=== PATIENT | male | born 1940 | race Caucasian/White ===

== ENCOUNTER 2017-05-11 12:58 | Outpatient (CLI) | payer MEDICARE, OTHER | END 2017-05-11 12:59 | disposition home or self-care (01) | LOC: BICULT 12:58 | PROVIDERS: ATTEND Internal Medicine Nephrology | DX: I12.9 Hypertensive chronic kidney disease with stage 1 through stage 4 chronic kidney disease, or unspecified chronic kidney disease (principal); E11.22 Type 2 diabetes mellitus with diabetic chronic kidney disease; N18.9 Chronic kidney disease, unspecified; I73.9 Peripheral vascular disease, unspecified; R80.9 Proteinuria, unspecified; C61 Malignant neoplasm of prostate; E78.5 Hyperlipidemia, unspecified; I25.10 Atherosclerotic heart disease of native coronary artery without angina pectoris; J44.9 Chronic obstructive pulmonary disease, unspecified; K57.30 Diverticulosis of large intestine without perforation or abscess without bleeding; K21.9 Gastro-esophageal reflux disease without esophagitis; M19.90 Unspecified osteoarthritis, unspecified site; R76.11 Nonspecific reaction to tuberculin skin test without active tuberculosis | CPT/HCPCS: 76770 ==

== ENCOUNTER 2017-08-03 12:46 | Outpatient (CLI) | payer MEDICARE, OTHER | END 2017-08-03 12:47 | disposition home or self-care (01) | LOC: BICULT 12:46 | PROVIDERS: ATTEND Internal Medicine Nephrology | DX: E11.51 Type 2 diabetes mellitus with diabetic peripheral angiopathy without gangrene (principal); E11.22 Type 2 diabetes mellitus with diabetic chronic kidney disease; I13.10 Hypertensive heart and chronic kidney disease without heart failure, with stage 1 through stage 4 chronic kidney disease, or unspecified chronic kidney disease; C61 Malignant neoplasm of prostate; N18.9 Chronic kidney disease, unspecified; E78.5 Hyperlipidemia, unspecified; J44.9 Chronic obstructive pulmonary disease, unspecified; K57.90 Diverticulosis of intestine, part unspecified, without perforation or abscess without bleeding; K21.9 Gastro-esophageal reflux disease without esophagitis; M19.90 Unspecified osteoarthritis, unspecified site | CPT/HCPCS: 93880 ==

== ENCOUNTER 2018-03-29 07:48 | Outpatient (CLI) | payer MEDICARE, OTHER ==
--- NOTE | 2018-03-29 10:17 | MRI ---
CERVICAL SPINE MRI WITHOUT CONTRAST: Comparison: 04-05-15 History: Cervicalgia. Technique: Cervical spine MRI is performed without intravenous gadolinium administration. Multisequen tial, multiplanar imaging performed. FINDINGS: There is appropriate T1 marrow signal intensity of the cervical vertebrae. Cervical spine vertebral b edwin height is maintained. There is no fracture. 1.4 mm of anterolisthesis of C6 upon C7, unchanged. V isualized brain parenchyma, cervical cord and the upper thoracic cord have a normal size and signal i ntensity. No significant STIR hyperintensity to suggest vertebral body edema or ligamentous injury. C2-3: Central disc bulge abuts the thecal sac. No significant central canal stenosis. Hypertrophic ch anges in the bilateral uncal vertebral joints results in mild to moderate right and mild left foramin al narrowing. C3-4: There is a broad based disc osteophyte complex without central disc bulge that abuts and deform s the ventral thecal sac and midline cervical cord. No T2 hyperintensity in the cord. Mild to moderat e central canal stenosis. Hypertrophic changes and bilateral uncal vertebral joints and severe right facet hypertrophy are noted. There is severe right and left foraminal narrowing. C4-5: There is a broad based disc osteophyte complex that abuts the thecal sac. There is a right para central component. Ventral subarachnoid space is effaced. There is flattening and deformity of the ve ntral thecal sac and ventral cord. No T2 hyperintensity in the cord. Moderate central canal stenosis. Hypertrophic change in bilateral uncal vertebral joints as well as left facet hypertrophy. Severe bi lateral neural foraminal narrowing. C5-6: Broad based disc osteophyte complex abuts the thecal sac. There is severe central canal stenosi s. Severe bilateral foraminal narrowing due to hypertrophic changes of the uncal vertebral joints and to lesser extent facet hypertrophy. C6-7: Broad based disc osteophyte complex abuts the thecal sac. At least mild central canal stenosis. Moderate to severe bilateral foraminal narrowing due to hypertrophic changes of the uncal vertebral joint. C7-T1: No high grade central canal stenosis. There is mild bilateral foraminal narrowing. There is le ft greater than right facet hypertrophy. IMPRESSION: Degenerative changes of the cervical spine as above. POS: [facility]
--- NOTE | 2018-03-29 11:07 | MRI ---
MRI OF LUMBAR SPINE: HISTORY: Low back pain, M54.5. FINDINGS: Multiplanar, multisequence noncontrast-enhanced MRI images lumbar spine obtained. Comparison is made to previous exam from 04/07/2015. MRI images demonstrate for the purposes of this dictation 5 [id number] lumbar vertebrae. 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 T12-L1: Unremarkable. L1-2: Unremarkable. L2-3: There is a mild broad-based disk bulge compressing the thecal sac and the lateral recesses. T here is bilateral facet hypertrophy seen. This has not significantly changed since the previous exam . Moderate bilateral neural foraminal narrowing is seen due to facet hypertrophy as well as the broa d-based disk bulge at the L2-3 level. L3-4: There is some disk desiccation seen. There is a broad-based disk bulge with bilateral facet a nd ligamentum flavum hypertrophy. This results in minimal central and lateral recess stenosis and mo derate bilateral neural foraminal narrowing. L4-5: There is grade I anterolisthesis of L4 on L5 unchanged since the previous exam. There is yg re facet hypertrophy as well as a broad-based central disk protrusion. There is moderate left L4-5 l ateral recess stenosis seen. The right neural foramen demonstrates mild narrowing while the left sev ere stenosis. The central canal and right L4-5 lateral recess are patent. L5-S1: Vacuum disk changes seen at this level. There is a broad-based disk bulge. Bilateral facet hypertrophy is seen. This results in mild to moderate right and moderate left-sided neural foraminal narrowing. IMPRESSION: Decreased central stenosis and lateral recess stenosis at L4-5. POS: [facility]
== END 2018-03-29 07:49 | disposition home or self-care (01) ==
LOC: TBSIIMAG 07:48
PROVIDERS: ATTEND Neurological Surgery
DX: M47.22 Other spondylosis with radiculopathy, cervical region (principal); M54.5 Low back pain; M48.061 Spinal stenosis, lumbar region without neurogenic claudication
CPT/HCPCS: 36415; 72141; 72148; 80053; 80061; 83036

== ENCOUNTER 2018-07-26 14:02 | Outpatient (CLI) | payer MEDICARE, OTHER ==
[2018-07-26 17:52] LABS: #Eosinphils 0.2 thou/uL (0.0-0.7); #Lymphocytes 2.9 thou/uL (1.20-3.40); #Monocytes 0.9 thou/uL (0.11-0.59); #Neutrophils 5.3 thou/uL (1.40-6.50); %Basophils 0.5 % (0.0-1.0); %Eosinophils 2.7 % (0.0-10.0); %Lymphocytes 31.1 % (21.0-51.0); %Monocytes 9.1 % (0.0-10.0); %Neutrophils 56.6 % (42.0-75.0); Hemoglobin 15.2 g/dL (14.0-18.0); Mean Corpuscular HGB CONC 33.7 g/dL (32.0-36.0); Mean Corpuscular Hemoglobin 34.1 pg (27.0-31.0); Mean Platelet Volume 8.4 fL (7.4-10.4); Platelet Count 280 thou/uL (130-400); RBC Distribution Width 11.7 % (11.5-14.5); Red Blood Cell (RBC) Count 4.47 mill/uL (4.70-6.10); White Blood Cell (WBC) Count 9.4 thou/uL (4.8-10.8)
[2018-07-26 18:15] LABS: Anion Gap 12 mmol/L (10-20); BUN (Urea Nitrogen) 20 mg/dL (8.4-25.7); Calc. Creatinine Clearance 0 mL/min (70-130); Calcium 9.2 mg/dL (7.8-10.44); Carbon Dioxide 27 mmol/L (23-31); Chloride 98 mmol/L (98-107); Estimated GFR-MDRD 44; Glucose 273 mg/dL (83-110); Potassium 4.2 mmol/L (3.5-5.1); Sodium 133 mmol/L (136-145)
== END 2018-07-26 14:03 | disposition home or self-care (01) ==
LOC: LABBT 14:02
PROVIDERS: ATTEND Orthopaedic Surgery
DX: Z01.818 Encounter for other preprocedural examination (principal); M12.811 Other specific arthropathies, not elsewhere classified, right shoulder
CPT/HCPCS: 80048; 85025; 87081; 93005; 93010

== ENCOUNTER 2018-07-26 15:30 | Inpatient (IN) | payer MEDICARE, OTHER ==
[2018-08-07] MEDS ORDERED: Midazolam HCl 2 mg/2 ml Vial ONE ×3 (06:36→08:03)
[2018-08-07] MEDS ORDERED: Fentanyl 100 MCG/2 ML VIAL ONE ×5 (06:36→12:44)
[2018-08-07] MEDS ORDERED: HYDROcodone/Acetaminophen 10/325 mg Tablet PO PRN ×2 (07:03)
[2018-08-07] MEDS ORDERED: traZODone HCl 150 MG TAB PO PRN (07:05)
[2018-08-07] MEDS ORDERED: diphenhydrAMINE 50 MG CAP PO PRN (07:05)
[2018-08-07] MEDS ORDERED: Sodium Chloride 0.9% 100 ML ONE (07:09)
[2018-08-07] MEDS ORDERED: Tranexamic Acid 1,000 MG/10 ML VIAL ONE ×2 (07:09→11:13)
[2018-08-07] MEDS ORDERED: Gentamicin 80 MG/2 ML VIAL ONE (07:15)
[2018-08-07] MEDS ORDERED: Vancomycin HCl 1.5 GM in Sodium Chloride 0.9% 250 ML 300 ML IVPB SCH (07:15)
[2018-08-07] MEDS ORDERED: Vancomycin HCl 1 GM in Premix Bag 1 BAG IVPB SCH (07:15)
[2018-08-07] MEDS ORDERED: Gentamicin Sulfate 100 MG in Premix Bag 1 BAG IVPB SCH (07:30)
[2018-08-07] MEDS ORDERED: Tranexamic Acid 1,000 MG in Sodium Chloride 0.9% 100 ML IVPB SCH (07:30)
[2018-08-07] MEDS ORDERED: Glimepiride 4 MG TAB PO SCH (08:00)
[2018-08-07] MEDS ORDERED: HYDROcodone/Acetaminophen 5/325 mg Tablet PO PRN (08:10)
[2018-08-07] MEDS ORDERED: Promethazine HCl 25 MG/ML VIAL IM PRN ×2 (08:10→11:06)
[2018-08-07] MEDS ORDERED: traMADol HCl 50 MG TAB PO PRN ×2 (08:10)
[2018-08-07] MEDS ORDERED: Zolpidem Tartrate 5 MG TAB PO PRN (08:10)
[2018-08-07] MEDS ORDERED: Ropivacaine 0.2% 550 ML 550 ML NERVE BLCK SCH (08:10)
[2018-08-07] MEDS ORDERED: Ondansetron PF 4 MG/2 ML Vial IVP PRN (08:10)
[2018-08-07] MEDS ORDERED: Ketorolac Tromethamine 30 MG/ML VIAL IVP PRN ×2 (08:10→11:06)
[2018-08-07] MEDS ORDERED: Fentanyl 100 MCG/2 ML VIAL SLOW IVP PRN (08:11)
[2018-08-07] MEDS ORDERED: Ondansetron HCl/PF 4 MG/2 ML Vial IVP PRN (11:06)
[2018-08-07] MEDS ORDERED: Promethazine HCl 25 MG/ML VIAL SLOW IVP PRN (11:06)
[2018-08-07] MEDS: Aspirin 81 mg Enteric Coated Tablet PO SCH (12:49)
[2018-08-07] MEDS: metFORMIN 500 MG TAB PO SCH ×2 (12:49→17:17)
[2018-08-07] MEDS: Stress 600 With Zinc 1 TAB PO SCH (12:50)
[2018-08-07] MEDS: Doxycycline 100 MG CAP PO SCH ×2 (12:50→20:16)
[2018-08-07] MEDS: Niacin 500 MG TAB PO SCH (12:50)
[2018-08-07] MEDS: Ramipril 5 MG CAP PO SCH (12:50)
[2018-08-07] MEDS ORDERED: Ropivacaine 0.2% HCl/PF (40 MG/20 ML VIAL) ONE (13:29)
[2018-08-07] MEDS ORDERED: Ropivacaine 0.5% HCl/PF (150 MG/30 ML VIAL) ONE (13:29)
[2018-08-07] MEDS ORDERED: Glycopyrrolate 0.2 MG/ML 5 ML SYRINGE ONE (14:21)
[2018-08-07] MEDS ORDERED: Ondansetron PF 4 MG/2 ML Vial ONE (14:21)
[2018-08-07] MEDS ORDERED: PROPOFOL 200 MG/20 ML VIAL ONE (14:21)
[2018-08-07] MEDS ORDERED: Lidocaine 1% PF 5 ML VIAL ONE (14:21)
[2018-08-07] MEDS ORDERED: PHENYLEPHRINE-NS 100 MCG/ML 10 ML SYRINGE ONE (14:21)
[2018-08-07] MEDS ORDERED: Rocuronium Bromide 10 MG/ML (10ML VIAL) ONE (14:21)
[2018-08-07] MEDS ORDERED: Ketorolac Tromethamine 30 MG/ML VIAL ONE (14:21)
[2018-08-07] MEDS ORDERED: ePHEDrine 50 MG/ML VIAL ONE (14:21)
--- NOTE | 2018-08-07 14:49 | OP ---
DATE OF PROCEDURE: 08/07/2018 PREOPERATIVE DIAGNOSES: Rotator cuff arthropathy, right shoulder with biceps tendinitis. POSTOPERATIVE DIAGNOSES: Rotator cuff arthropathy, right shoulder with biceps tendinitis. PROCEDURE PERFORMED: Right reverse total shoulder arthroplasty using a [employer] Tornier flex stem, size 2 with a 29 mm base plate with anterior and posterior screws 41, superior 29, inferior 32, 36 mm centered glenosphere, and a 9 mm poly with 0 offset tray. LANGUAGE TRANSLATOR: Austen Thomas PA-C NARRATIVE REPORT: After appropriate consent was obtained, the patient was taken to the operating room where general anesthesia was induced. The patient was placed in a beach chair position. Right arm was prepped and draped in the usual sterile fashion. Oblique incision was made in the deltopectoral interval. Cephalic vein was identified and preserved. Dissection was carried down to the conjoint tendon which was retracted medially. The subscapularis was taken down. The biceps tendon was in poor condition. It was taken down off the superior glenoid tubercle and tenodesed to the pectoralis tendon. Excess tendon was removed. The shoulder was then easily dislocated. I opened the humerus with a T handle and then cut a 20 mm retroversion superior cut. The subscapularis had been previously tagged. I used a subscapularis to follow this down to the anterior glenoid and a Bankart retractor was placed anteriorly, and drill was placed posteriorly. I drilled a center hole in the glenoid and reamed with a 1-step reamer. Irrigation was performed. The base plate was deployed without difficulty. Screws were inserted in the usual technique with good compression and fixation. Glenosphere was deployed without difficulty and the screw was tightened. Attention was turned back to the humerus which was opened with a T handle, and after using the acetabular reamer, I then also used a metaphyseal reamer. The appropriate size stem was trialed and polyethylene was trialed until the implants were determined as above. I did drill holes through the humerus, and a cottony Dacron suture was placed around the prosthesis through bone to facilitate repair of the subscapularis. Irrigation was performed. Permanent implants were placed. Shoulder was reduced. The subscapularis was repaired back to bone using the cottony Dacron suture. Irrigation performed again. The deltopectoral interval was tacked shut with 0 Vicryl, subcutaneous tissue was closed with 2-0 Vicryl, skin was closed with sloane, and sterile dressing was applied. Job ID: [id number]
[2018-08-07] MEDS ORDERED: Dextrose 50% Abboject 50 ML SYRINGE SLOW IVP PRN (16:12)
[2018-08-07] MEDS ORDERED: Dextrose 5% in Water 1,000 ML IV PRN (16:12)
[2018-08-07] MEDS ORDERED: Insulin Regular 300 UNITS/3 ML VIAL SC PRN (16:12)
[2018-08-07 16:16] VITALS: BMI 27.6
[2018-08-07] MEDS: Glimepiride 4 MG TAB PO SCH (17:18)
[2018-08-07] MEDS: Insulin Regular 300 UNITS/3 ML VIAL SC PRN (17:19)
[2018-08-07] MEDS: Dextrose 5 %-0.45 % NaCl 1,000 ML IV SCH (18:48)
--- NOTE | 2018-08-07 20:07 | PDOC.PN ---
- Subjective Encounter Start Date: 08/07/18 Encounter Start Time: 20:07 Patient seen and examined for med mngt. No CP. No new complaints. No overnight events - Objective MAR Reviewed: Yes Vital Signs & Weight: Vital Signs (12 hours) Temp Pulse Resp BP Pulse Ox 08/07/18 13:10 98.6 F 83 18 144/77 H 95 Weight Weight 190 lb I&O: 08/06/18 08/07/18 08/08/18 06:59 06:59 06:59 Intake Total 1940 Output Total 375 Balance 1565 Additional Labs: Accuchecks 08/07/18 15:26 POC Glucose 305 H EKG Reviewed by me: Yes (SR) Phys Exam - Physical Examination Constitutional: NAD Respiratory: no wheezing, no rhonchi Cardiovascular: RRR, no rub Gastrointestinal: soft, non-tender, positive bowel sounds Musculoskeletal: no edema Neurological: moves all 4 limbs Dx/Plan (1) Diabetes mellitus type 2 in nonobese Code(s): E11.9 - TYPE 2 DIABETES MELLITUS WITHOUT COMPLICATIONS Status: Chronic Comment: uncontrolled (2) BPH (benign prostatic hyperplasia) Code(s): N40.0 - BENIGN PROSTATIC HYPERPLASIA WITHOUT LOWER URINRY TRACT SYMP Status: Chronic (3) GERD (gastroesophageal reflux disease) Code(s): K21.9 - GASTRO-ESOPHAGEAL REFLUX DISEASE WITHOUT ESOPHAGITIS Status: Chronic (4) Hypertension Code(s): I10 - ESSENTIAL (PRIMARY) HYPERTENSION Status: Chronic (5) CKD (chronic kidney disease) stage 3, GFR 30-59 ml/min Code(s): N18.3 - CHRONIC KIDNEY DISEASE, STAGE 3 (MODERATE) Status: Chronic (6) FERNANDO on CPAP Code(s): G47.33 - OBSTRUCTIVE SLEEP APNEA (ADULT) (PEDIATRIC); Z99.89 - DEPENDENCE ON OTHER ENABLING MACHINES AND DEVICES Status: Chronic - Plan cont current plan of care, DVT proph w/SCDs Change Glimepiride to 4 mg BID-WM -: Cont Metformin -: Cont Ramipril -: Cont CPAP HS -: Will follow. Thank you for this consultation. Review of Systems - Review of Systems Respiratory: negative: Cough, Dry, Shortness of Breath, Hemoptysis, SOB with Excertion, Pleuritic Pain, Sputum, Wheezing Cardiovascular: negative: chest pain, palpitations, orthopnea, paroxysmal nocturnal dyspnea, edema, light headedness, other - Medications/Allergies Allergies/Adverse Reactions: Allergies Allergy/AdvReac Type Severity Reaction Status Date / Time ciprofloxacin [From Cipro] Allergy Verified 07/26/18 16:49 diazepam [From Valium] Allergy "climb the Verified 07/26/18 16:49 lemos" latex Allergy Rash Verified 07/26/18 16:49 levofloxacin [From Levaquin] Allergy 'terrible Verified 07/26/18 16:49 pains in legs, muscle in shoulder deteriorated" Penicillins Allergy "as a Verified 07/26/18 16:49 youngster" Npxbmsu-[id number]-Vwg Reductase Allergy Verified 07/26/18 16:49 Inhibitor sulfamethoxazole Allergy Rash Verified 07/26/18 16:49 [From Bactrim] trimethoprim [From Bactrim] Allergy Rash Verified 07/26/18 16:49 Medications: Current Medications Hydrocodone Bitart/Acetaminophen ([place] 5/325) 1 tab PO Q4H PRN PRN Reason: Mild Pain (1-3) Hydrocodone Bitart/Acetaminophen ([place] 5/325) 2 tab PO Q4H PRN PRN Reason: For Moderate Pain 4-6 Aspirin (Ecotrin) 81 mg PO DAILY [facility] Last Admin: 08/07/18 12:49 Dose: Not Given Coenzyme Q10 (Coenzyme Q10) 100 mg PO [facility] Cyanocobalamin (Vitamin B-12) 2,500 mcg PO DAILY [facility] Dextrose/Water (Dextrose 50%) 25 gm SLOW IVP PRN PRN PRN Reason: Hypoglycemia Diphenhydramine HCl (Benadryl) 50 mg PO HS PRN PRN Reason: Allergies Doxycycline Hyclate (Vibramycin) 100 mg PO BID [facility] Last Admin: 08/07/18 12:50 Dose: Not Given Fentanyl (Sublimaze) 50 mcg SLOW IVP Q1H PRN PRN Reason: breakthrough pain Glimepiride (Amaryl) 4 mg PO BID-[facility] Last Admin: 08/07/18 17:18 Dose: 4 mg Glucagon (Glucagon) 1 mg IM PRN PRN PRN Reason: Hypoglycemia Dextrose/Sodium Chloride (D5 1/2 Ns) 1,000 mls @ 65 mls/hr IV .[id number] [facility] Last Admin: 08/07/18 18:48 Dose: Not Given Ropivacaine (Ropivacaine 0.2% 550 Ml) 550 mls @ 6 mls/hr NERVE BLCK INF [facility] Dextrose/Water (D5w) 1,000 mls @ 0 mls/hr IV .Q0M PRN PRN Reason: Hypoglycemia Insulin Human Regular (Humulin R) 0 units SC .MILD SLIDING SCALE PRN PRN Reason: Mild Correctional Scale Last Admin: 08/07/18 17:19 Dose: 5 units Insulin Human Regular (Humulin R) 0 units SC .BEDTIME SLIDING SC PRN PRN Reason: Bedtime Correctional Scale Ketorolac Tromethamine (Toradol) 15 mg IVP Q6H PRN PRN Reason: Moderate Pain (4-6) Stop: 08/10/18 08:11 Metformin HCl (Glucophage) 1,000 mg PO BID-[facility] Last Admin: 08/07/18 17:17 Dose: 1,000 mg Multivitamins/Zinc (Stress 600 With Zinc) 1 tab PO DAILY [facility] Last Admin: 08/07/18 12:50 Dose: Not Given Niacin (Niacin) 500 mg PO DAILY [facility] Last Admin: 08/07/18 12:50 Dose: Not Given Ondansetron HCl (Zofran) 4 mg IVP Q6H PRN PRN Reason: Nausea/Vomiting Saw [place] 500mg (Cap) 0 each PO BID [facility] Promethazine HCl (Phenergan) 12.5 mg IM Q4H PRN PRN Reason: Nausea Ramipril (Altace) 10 mg PO QAM [facility] Last Admin: 08/07/18 12:50 Dose: Not Given Sodium Chloride (Flush - Normal Saline) 10 ml IVF PRN PRN PRN Reason: Saline Flush Tamsulosin HCl (Flomax) 0.4 mg PO HS [facility] Tramadol HCl (Ultram) 50 mg PO Q6H PRN PRN Reason: Mild Pain (1-3) Tramadol HCl (Ultram) 100 mg PO Q6H PRN PRN Reason: Moderate Pain 4-6 Trazodone HCl (Desyrel) 150 mg PO HS PRN PRN Reason: Insomnia Zolpidem Tartrate (Ambien) 5 mg PO HSPRN PRN PRN Reason: Insomnia
[2018-08-07] MEDS: Tamsulosin HCl 0.4 MG CAP PO SCH (20:16)
[2018-08-07] MEDS: Ubidecarenone 50 MG CAP PO SCH (20:16)
[2018-08-07] MEDS: HYDROcodone/Acetaminophen 5/325 mg Tablet PO PRN (23:48)
[2018-08-07] MEDS: Sodium Chloride 0.45% 1,000 ML IV SCH (23:55)
[2018-08-08] MEDS: SAW PALMETTO 500 MG PO SCH ×2 (07:26→07:27)
[2018-08-08] MEDS: Dextrose 5 %-0.45 % NaCl 1,000 ML IV SCH (07:27)
[2018-08-08] MEDS: Niacin 500 MG TAB PO SCH (08:17)
[2018-08-08] MEDS: HYDROcodone/Acetaminophen 5/325 mg Tablet PO PRN (08:17)
[2018-08-08] MEDS: Ramipril 5 MG CAP PO SCH (08:18)
[2018-08-08] MEDS: Aspirin 81 mg Enteric Coated Tablet PO SCH (08:19)
[2018-08-08] MEDS: Glimepiride 4 MG TAB PO SCH ×2 (08:19→16:41)
[2018-08-08] MEDS: metFORMIN 500 MG TAB PO SCH ×2 (08:19→16:41)
[2018-08-08] MEDS: Doxycycline 100 MG CAP PO SCH ×2 (08:19→20:02)
[2018-08-08] MEDS: Stress 600 With Zinc 1 TAB PO SCH (08:53)
[2018-08-08] MEDS ORDERED: Cyanocobalamin (Vitamin B-12) 1,000 MCG TAB PO SCH (09:00)
[2018-08-08] MEDS ORDERED: HYDROcodone/Acetaminophen 10/325 mg Tablet PO PRN ×2 (12:19→12:20)
--- NOTE | 2018-08-08 13:09 | PRG ---
DATE OF SERVICE: 08/08/2018 SUBJECTIVE: Maurice is a 78-year-old white male, who is postop day 1 from a right total shoulder arthroplasty. He has had some struggles with pain for the last 24 hours. He has also had some blood sugar spikes recently. He is doing relatively well otherwise with his mobility, it just pain has been a problem for him. OBJECTIVE: He has a dense block in the right upper extremity. He is in sling. There is no strike through in his incision. He is awake, alert, and appropriate with examiner. Grossly nonfocal. He is able sit and stand at the bedside without any trouble. He has appropriate swelling at the fingers. IMPRESSION: 1. A 78-year-old male, postop day #1, right reverse total shoulder arthroplasty. 2. Hyperglycemia. 3. Diabetes type 2. 4. Benign prostatic hypertrophy. 5. Gastroesophageal reflux disease. 6. Hypertension. 7. Chronic renal disease, stage 3. 8. Obstructive sleep apnea. 9. Pain syndrome. PLAN: 1. We will continue to increase the bolus on his indwelling catheter. 2. Defer the medical management for hypertension and other comorbidities. 3. We may increase his dose of [place] to 10 mg as I have discussed with the Pain Service. 4. I will defer discharge until tomorrow while we were attempting to establish a good baseline pain control with this patient. I will check him tomorrow. Job ID: [id number]
[2018-08-08] MEDS: Insulin Regular 300 UNITS/3 ML VIAL SC PRN (16:40)
[2018-08-08] MEDS ORDERED: Insulin Regular 300 UNITS/3 ML VIAL SC PRN (18:01)
[2018-08-08] MEDS ORDERED: Naloxone HCl 0.4 mg/ml Vial IV PRN (18:33)
[2018-08-08] MEDS ORDERED: fentaNYL Citrate/PF 2,000 MCG in Sodium Chloride 0.9% 60 ML IV PRN (18:33)
[2018-08-08] MEDS: Sodium Chloride 0.45% 1,000 ML IV SCH (19:23)
[2018-08-08] MEDS: Tamsulosin HCl 0.4 MG CAP PO SCH (20:02)
[2018-08-08] MEDS: Ubidecarenone 50 MG CAP PO SCH (20:02)
[2018-08-09] MEDS: Niacin 500 MG TAB PO SCH (08:19)
[2018-08-09] MEDS: Stress 600 With Zinc 1 TAB PO SCH (08:19)
[2018-08-09] MEDS: Ramipril 5 MG CAP PO SCH (08:19)
[2018-08-09] MEDS: Doxycycline 100 MG CAP PO SCH (08:19)
[2018-08-09] MEDS: Glimepiride 4 MG TAB PO SCH (08:20)
[2018-08-09] MEDS: Aspirin 81 mg Enteric Coated Tablet PO SCH (08:20)
[2018-08-09] MEDS: metFORMIN 500 MG TAB PO SCH (08:20)
--- NOTE | 2018-08-09 10:26 | PRG ---
DATE OF SERVICE: 08/09/2018 SUBJECTIVE: Maurice is a 78-year-old white male, who is postop day 2 from a right reverse total shoulder arthroplasty. He still has discomfort and we kept him last night for pain control and the anesthesia team went ahead and placed a fentanyl TANK BOTTOM ASSEMBLER. The patient is not really convinced that it is working, but he is able to carry on a conversation. OBJECTIVE: He has some motor strength in the right elbow and also full digital excursion on the right fingers. He can lux pinch and give thumbs up. Incisions clean without erythema or strike through. He is able to sit and stand at bedside. IMPRESSION: 1. A 78-year-old male, postoperative day two, right reverse total shoulder arthroplasty. 2. Hyperglycemia. 3. Diabetes, type 2. 4. Benign prostatic hypertrophy. 5. Gastroesophageal reflux disease. 6. Hypertension. 7. Chronic renal disease, stage 3. 8. Obstructive sleep apnea. 9. Expected pain syndrome. PLAN: 1. Continue TANK BOTTOM ASSEMBLER for now. We will discuss with the pain team strategies for discontinuing his block, seeing how well he responds to this. 2. See how he does for the rest of the day. Consider discharge this afternoon, but he may very well . Job ID: [id number]
[2018-08-09] MEDS ORDERED: HYDROcodone/Acetaminophen 10/325 mg Tablet PO PRN ×2 (11:06→11:08)
[2018-08-09 14:16] VITALS: BP 156/88; TEMP 97.6
== END 2018-08-09 15:14 | disposition home or self-care (01) | DRG 483 ==
LOC: SURG A 08-07 06:05
PROVIDERS: ADMIT Orthopaedic Surgery; ATTEND Orthopaedic Surgery
PROC: 0RRJ00Z Replacement of Right Shoulder Joint with Reverse Ball and Socket Synthetic Substitute, Open Approach (ICD-10-PCS; principal; 2018-08-07)
DX: M12.811 Other specific arthropathies, not elsewhere classified, right shoulder (principal); E11.65 Type 2 diabetes mellitus with hyperglycemia; N40.0 Benign prostatic hyperplasia without lower urinary tract symptoms; K21.9 Gastro-esophageal reflux disease without esophagitis; N18.3 Chronic kidney disease, stage 3 (moderate); I12.9 Hypertensive chronic kidney disease with stage 1 through stage 4 chronic kidney disease, or unspecified chronic kidney disease; E11.69 Type 2 diabetes mellitus with other specified complication; G47.33 Obstructive sleep apnea (adult) (pediatric); Z99.89 Dependence on other enabling machines and devices; Z79.82 Long term (current) use of aspirin; Z79.84 Long term (current) use of oral hypoglycemic drugs; Z79.899 Other long term (current) drug therapy
CPT/HCPCS: 36416; A4306; J1580; J1815; J1885; J2001; J2250; J2405; J2704; J2795; J3010; J3370; J3490; J7050

== ENCOUNTER → 2018-09-11 | Day surgery (SDC) | payer MEDICARE, OTHER ==
[~2018-09-11] MED LIST: Fentanyl 100 MCG/2 ML VIAL ONE; Lidocaine 1% PF 5 ML VIAL ONE; PROPOFOL 200 MG/20 ML VIAL ONE; Vancomycin HCl 1.5 GM in Sodium Chloride 0.9% 250 ML 300 ML IVPB SCH
[2018-09-11 14:26] LABS: #Basophils 0.1 thou/uL (0.0-0.2); #Eosinphils 0.4 thou/uL (0.0-0.7); #Lymphocytes 2.5 thou/uL (1.20-3.40); #Monocytes 0.7 thou/uL (0.11-0.59); #Neutrophils 5.3 thou/uL (1.40-6.50); %Basophils 0.7 % (0.0-1.0); %Eosinophils 4.4 % (0.0-10.0); %Lymphocytes 27.7 % (21.0-51.0); %Monocytes 8.2 % (0.0-10.0); %Neutrophils 58.9 % (42.0-75.0); Hemoglobin 14.5 g/dL (14.0-18.0); Mean Corpuscular HGB CONC 33.5 g/dL (32.0-36.0); Mean Corpuscular Hemoglobin 33.6 pg (27.0-31.0); Mean Platelet Volume 7.1 fL (7.4-10.4); Platelet Count 271 thou/uL (130-400); RBC Distribution Width 11.9 % (11.5-14.5); Red Blood Cell (RBC) Count 4.32 mill/uL (4.70-6.10)
[2018-09-11 14:39] LABS: Anion Gap 14 mmol/L (10-20); BUN (Urea Nitrogen) 18 mg/dL (8.4-25.7); Calc. Creatinine Clearance 60 mL/min (70-130); Calcium 9.5 mg/dL (7.8-10.44); Carbon Dioxide 23 mmol/L (23-31); Chloride 101 mmol/L (98-107); Estimated GFR-MDRD 57; Glucose 73 mg/dL (83-110); Potassium 3.9 mmol/L (3.5-5.1); Sodium 134 mmol/L (136-145)
--- NOTE | 2018-09-11 21:06 | RAD ---
RIGHT SHOULDER TWO VIEWS: History: Closed reduction in OR. FINDINGS: Right shoulder prosthesis. Components appear in normal position and alignment on this two view study. POS: [facility]
--- NOTE | 2018-09-12 01:04 | OP ---
DATE OF PROCEDURE: 09/11/2018 PREOPERATIVE DIAGNOSES: Status post right total shoulder arthroplasty July 2018, status post fall with a traumatic dislocation. POSTOPERATIVE DIAGNOSES: Status post right total shoulder arthroplasty July 2018, status post fall with a traumatic dislocation. PROCEDURES PERFORMED: Right shoulder reverse total shoulder arthroplasty, closed reduction. BOILER ERECTOR: None. ANESTHESIOLOGIST: Antonio Barros ANESTHESIA: The patient received LMA. ESTIMATED BLOOD LOSS: None. TOURNIQUET TIME: None. IMPLANTS: None. ANTIBIOTICS: 1 g of vancomycin. COMPLICATIONS: None. HISTORY OF PRESENT ILLNESS: Mr. Langley is a 78-year-old male, status post fall on Monday, right shoulder reverse total shoulder arthroplasty. I discussed the patient's risks and benefits of a closed reduction of his right shoulder. I discussed that there is a 60% incidence of it staying in and 40% incidence of requiring further procedures to help with instability. The patient understood the risks and benefits of reduction, pain, scar, bleeding, infection, fracture, above or below the stem, need for further surgeries, loss of life or limb. The patient understood the risks and benefits and elected to proceed. DESCRIPTION OF PROCEDURE: Time-out was performed designating the patient's right upper extremity as the operative site based on site, consents, and marking. After time-out, the patient was in intubation, received propofol for relaxation, bringing the patient's arm in a forward flexion position including gentle traction. The patient's shoulder reduced spontaneously, complete relaxation after about 1 to 2 seconds of gently putting into position. We then took AP and scapular Y to show the shoulder reduced. I put the patient through range of motion. He was able to externally rotate about 15 degrees and overhead elevated to 110 without any signs of dislocation. We placed the patient in the abduction pillow followed up in 1-[address] Amaya. Job ID: [id number] [facility]
--- NOTE | 2018-09-13 10:21 | HP ---
HISTORY OF PRESENT ILLNESS: Mr. Langley is a pleasant 78-year-old male, who recently underwent a right total shoulder arthroplasty reverse with Dr. Amaya on 08/07. The patient on Monday of this last week 09/07/2018 fell and injured his shoulder. The patient is right-hand dominant. He is diabetic. The patient has had no previous history of surgery to the right shoulder besides the reverse shoulder arthroplasty performed approximately a month ago. The patient delayed followup because he can certainly would not be seen until afterwards. He is not really in any discomfort, resting comfortably in bed. Denies numbness or tingling, but stated at the time of the injury that he did actually have that. PAST MEDICAL HISTORY: Left total shoulder arthroplasty in 2014. 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 MEDICATIONS: Please see list for full details. SOCIAL HISTORY: Smoking, nonsmoking. The patient is retired. ALLERGIES: MULTIPLE ALLERGIES LISTED IN THE CHART. CIPRO, DIAZEPAM, LATEX, AND LEVOFLOXACIN. PHYSICAL EXAMINATION: GENERAL: Alert and oriented male in no acute distress, resting in bed. EXTREMITIES: Right upper extremity shows swelling, prominent anteriorly . The patient has motor intact distally. Shoulder films show an anterior shoulder dislocation and reverse. ASSESSMENT AND PLAN: Status post right total shoulder arthroplasty with traumatic dislocation. The patient will be taken to the OR for closed reduction of the right shoulder. I discussed with him that if an open reduction will be performed I need all the revision implants which are not currently in town to proceed with this procedure I discussed that he has a chance of requiring further revision in the future and about 60% of these can stay reduced and not require further surgery, but 4/10 times they need further procedures if they remain unstable. I did not see any categories that typically lead to recurrent instability such as obesity multiple surgeries. The patient will be taken back and discussed the risks and benefits of the surgery, pain, scar, bleeding, infection, damage to vital structures, decreased range of motion, strength, nonunion, fracture above or below the stem, potential need for surgery. He understands the risks and benefits and elected to proceed. Job ID: [id number]
== END ==
LOC: SDC 12:41
PROVIDERS: ATTEND Orthopaedic Surgery
PROC: 0RSJXZZ Reposition Right Shoulder Joint, External Approach (ICD-10-PCS; principal; 2018-09-11)
DX: S43.084A Other dislocation of right shoulder joint, initial encounter (principal); Z85.46 Personal history of malignant neoplasm of prostate; Z79.82 Long term (current) use of aspirin; Z79.84 Long term (current) use of oral hypoglycemic drugs; Z79.899 Other long term (current) drug therapy; Z88.0 Allergy status to penicillin; Z88.1 Allergy status to other antibiotic agents; Z88.2 Allergy status to sulfonamides; Z88.8 Allergy status to other drugs, medicaments and biological substances; Z91.040 Latex allergy status; Z96.611 Presence of right artificial shoulder joint; Z96.612 Presence of left artificial shoulder joint; Z96.653 Presence of artificial knee joint, bilateral; W19.XXXA Unspecified fall, initial encounter
CPT/HCPCS: 36415; 80048; 85025; 93005; 93010; J2001; J2704; J3010; J3370; J7050

== ENCOUNTER 2020-12-25 15:10 | Outpatient (CLI) | payer MEDICARE, OTHER | END 2020-12-25 15:11 | disposition home or self-care (01) | LOC: BICRAD 15:10 | PROVIDERS: ATTEND Family Medicine | DX: M47.22 Other spondylosis with radiculopathy, cervical region (principal); M43.12 Spondylolisthesis, cervical region; M48.02 Spinal stenosis, cervical region | CPT/HCPCS: 72052 ==

== ENCOUNTER 2021-01-12 14:50 | Outpatient (CLI) | payer MEDICARE, OTHER | END 2021-01-12 14:51 | disposition home or self-care (01) | LOC: BICMRI 14:50 | PROVIDERS: ATTEND Family Medicine | DX: M47.22 Other spondylosis with radiculopathy, cervical region (principal); M43.12 Spondylolisthesis, cervical region; M48.02 Spinal stenosis, cervical region | CPT/HCPCS: 72141 ==

== ENCOUNTER 2023-08-22 11:45 | Outpatient (CLI) | payer MEDICARE, OTHER | END 2023-08-22 11:46 | disposition home or self-care (01) | LOC: RAD 11:45 | PROVIDERS: ATTEND Internal Medicine Critical Care Medicine | DX: R06.00 Dyspnea, unspecified (principal) | CPT/HCPCS: 71046 ==